=== PATIENT | female | born 1990 | race Caucasian/White ===

== ENCOUNTER 2023-07-15 07:41 | Emergency (ER) | payer MEDICAID ==
[~2023-07-15] VITALS: Ht 160 cm; Wt 63.5 kg
[2023-07-15 08:09] VITALS: BP 99/58; PULSE 95; RESP 19; TEMP 98.9; O2SAT 99
[2023-07-15] MEDS ORDERED: LORA1T1237 PO (08:31)
[2023-07-15] MEDS ORDERED: AZIT250T4 PO (08:31)
[2023-07-15 08:44] VITALS: BP 100/78; PULSE 89; RESP 19; TEMP 98.9; O2SAT 99
[2023-07-15 09:07] LABS: FLU A ANTIGEN negative (NEGATIVE); FLU B ANTIGEN negative (NEGATIVE)
== END 2023-07-15 08:45 | disposition home or self-care (01) ==
LOC: MED 07:41
DX: J02.9 Acute pharyngitis, unspecified (principal); R05.9 Cough, unspecified; Z20.822 Contact with and (suspected) exposure to COVID-19
CPT/HCPCS: 99283